=== PATIENT | female | born 1980 | race Caucasian/White ===

== ENCOUNTER 2019-03-06 14:18 | Outpatient (CLI) | payer BC ==
--- NOTE | 2019-03-06 15:04 | MMO ---
Bilateral MAMMO Bilat Screen [facility]. CLINICAL HISTORY: Patient is 38 years old and is seen for screening. The patient has no family history of breast cancer. The patient has a history of Skin cancer in December,. VIEWS: The views performed were: bilateral craniocaudal with tomosynthesis; bilateral mediolateral oblique with tomosynthesis; and bilateral exaggerated craniocaudal. MAMMOGRAM FINDINGS: The breasts are heterogeneously dense, which could obscure a lesion on mammography. Finding 1: There is an oval mass with obscured margins seen in the outer region of the right breast. Finding 2: There is an oval mass with obscured margins seen in the left breast at 12 o'clock. Finding 3: There are calcifications with segmental distribution seen in the sub-areolar region of the left breast. IMPRESSION: FINDING 1: MASS IN THE RIGHT BREAST REQUIRES ADDITIONAL EVALUATION. RECOMMEND DIAGNOSTIC MAMMOGRAM. ULTRASOUND MAY ALSO PROVE USEFUL AT RECALL. FINDING 2: MASS IN THE LEFT BREAST REQUIRES ADDITIONAL EVALUATION. RECOMMEND DIAGNOSTIC MAMMOGRAM. ULTRASOUND MAY ALSO PROVE USEFUL AT RECALL. FINDING 3: CALCIFICATIONS IN THE LEFT BREAST REQUIRE ADDITIONAL EVALUATION. RECOMMEND DIAGNOSTIC MAMMOGRAM. THE RESULTS OF THIS EXAM WERE SENT TO THE PATIENT. ACR BI-RADS Category 0 - Incomplete: Need additional imaging evaluation. [facility] will notify the patient of the need for additional imaging services. MAMMOGRAPHY NOTE: 1. A negative mammogram report should not delay a biopsy if a dominant of clinically suspicious mass is present. 2. Approximately 10% to 15% of breast cancers are not detected by mammography. 3. Adenosis and dense breasts may obscure an underlying neoplasm.
== END 2019-03-06 14:19 | disposition home or self-care (01) ==
LOC: BICMAMMO 14:18
PROVIDERS: ATTEND Family Medicine
DX: Z12.31 Encounter for screening mammogram for malignant neoplasm of breast (principal); Z85.828 Personal history of other malignant neoplasm of skin; N63.10 Unspecified lump in the right breast, unspecified quadrant; N63.20 Unspecified lump in the left breast, unspecified quadrant; R92.1 Mammographic calcification found on diagnostic imaging of breast
CPT/HCPCS: 77063; 77067

== ENCOUNTER 2019-03-16 08:40 | Outpatient (CLI) | payer BC ==
--- NOTE | 2019-03-16 09:43 | MMO ---
Bilateral MAMMO Bilat Diag [facility]. CLINICAL HISTORY: Patient is 38 years old and is seen for diagnostic exam. The patient has no family history of breast cancer. The patient has a history of Skin cancer in December,. VIEWS: The views performed were: bilateral craniocaudal with tomosynthesis; bilateral mediolateral oblique with tomosynthesis; bilateral mediolateral with tomosynthesis; left craniocaudal spot compression magnification; and left mediolateral spot compression magnification. FILMS COMPARED: The present examination has been compared to prior imaging studies performed at [facility] on 03/06/2019 and 03/16/2019. MAMMOGRAM FINDINGS: The breasts are heterogeneously dense, which could obscure a lesion on mammography. Lobulated masses are redemonstrated bilaterally on this examination, likely representing mildly complex cysts on ultrasound. Please see ultrasound report for details. Numerous scattered calcifications are noted on the left, probably benign as well. Recommend 6 month follow up diagnostic mammogram and focused breast ultrasound. IMPRESSION: FINDINGS IN BOTH BREASTS ARE PROBABLY BENIGN. FOLLOW-UP IN 6 MONTHS IS RECOMMENDED. 3BTHE RESULTS OF THIS EXAM WERE SENT TO THE PATIENT.0B ACR BI-RADS Category 3 - Probably benign finding - short interval follow-up suggested. [facility] will notify the patient of the need for additional imaging services. MAMMOGRAPHY NOTE: 1. A negative mammogram report should not delay a biopsy if a dominant of clinically suspicious mass is present. 2. Approximately 10% to 15% of breast cancers are not detected by mammography. 3. Adenosis and dense breasts may obscure an underlying neoplasm.
--- NOTE | 2019-03-16 09:52 | ULT ---
BILATERAL BREAST ULTRASOUND: DATE: 03/16/2019. COMPARISON: None. HISTORY: A 38-year-old female with bilateral breast masses on mammography. FINDINGS: Focused ultrasound of the right breast in the upper quadrant demonstrates a loculated hypoechoic lesi on approximately 2 cm from the nipple at the 10:30 position measuring 7 x 6 x 9 mm with increased thr ough transmission and slightly lobulated borders with internal linear structures suggesting a complex cyst. A probable cluster of complex cysts is also noted at the 11 o'clock position of the right thanh ast approximately 2 cm from the nipple measuring in total 1.2 x 0.3 x 0.7 cm. There is a mildly lobulated and slightly complex/septated cyst at the 12:30 position of the left luc[address] st measuring approximately 1.4 cm. IMPRESSION: BIRADS 3: probably benign finding. Recommend followup bilateral diagnostic mammogram and focused thanh ast ultrasound in 6 months. POS: OFF
== END 2019-03-16 08:41 | disposition home or self-care (01) ==
LOC: BICMAMMO 08:40
PROVIDERS: ATTEND Family Medicine
DX: N63.0 Unspecified lump in unspecified breast (principal); Z85.828 Personal history of other malignant neoplasm of skin
CPT/HCPCS: 77066; G0279

== ENCOUNTER 2019-07-21 12:29 | Outpatient (CLI) | payer BC ==
--- NOTE | 2019-07-21 13:56 | RAD ---
LEFT FOOT THREE VIEWS: HISTORY: A 39-year-old female with left foot pain. Injury to the first tarsal. FINDINGS: No acute fracture or dislocation is identified. POS: OFF
== END 2019-07-21 12:30 | disposition home or self-care (01) ==
LOC: BICRAD 12:29
PROVIDERS: ATTEND Family Medicine
DX: M79.672 Pain in left foot (principal)

== ENCOUNTER 2019-09-21 10:07 | Outpatient (CLI) | payer BC ==
--- NOTE | 2019-09-21 11:40 | MMO ---
Bilateral MAMMO Bilat Diag [facility]. CLINICAL HISTORY: Patient is 39 years old and is seen for diagnostic exam. The patient has no family history of breast cancer. The patient has a history of Skin cancer in December,. VIEWS: The views performed were: bilateral craniocaudal with tomosynthesis; bilateral mediolateral oblique with tomosynthesis; and bilateral mediolateral with tomosynthesis. FILMS COMPARED: The present examination has been compared to prior imaging studies performed at [facility] on 03/16/2019 and 09/21/2019. This study has been interpreted with the assistance of computer-aided detection. MAMMOGRAM FINDINGS: The breasts are heterogeneously dense, which could obscure a lesion on mammography. Finding 1: There is a stable oval mass seen in the outer region of the right breast. The mass was shown to be a cyst on ultrasound. Finding 2: There is a stable oval mass seen in the upper region of the left breast. The mass was shown to be a cyst on ultrasound. Finding 3: There are stable calcifications seen in the anterior central region of the left breast. IMPRESSION: FINDING 1: STABLE MASS IN THE RIGHT BREAST IS BENIGN. FINDING 2: STABLE MASS IN THE LEFT BREAST IS BENIGN. FINDING 3: STABLE CALCIFICATIONS IN THE LEFT BREAST ARE PROBABLY BENIGN. FOLLOW-UP IN 6 MONTHS IS RECOMMENDED. THE RESULTS OF THIS EXAM WERE SENT TO THE PATIENT. ACR BI-RADS Category 3 - Probably benign finding - short interval follow-up suggested. [facility] will notify the patient of the need for additional imaging services. MAMMOGRAPHY NOTE: 1. A negative mammogram report should not delay a biopsy if a dominant of clinically suspicious mass is present. 2. Approximately 10% to 15% of breast cancers are not detected by mammography. 3. Adenosis and dense breasts may obscure an underlying neoplasm. Reported by: LINDSEY GARCIA MD Electonically Signed: [id number]
--- NOTE | 2019-09-21 11:56 | ULT ---
LIMITED LEFT BREAST ULTRASOUND: DATE: 09/21/2019. PROVIDED CLINICAL HISTORY: Followup. FINDINGS: Comparison 03/16/2019. Simple cyst at the 12:30 position of the left breast is stable. No concerning sonographic findings. IMPRESSION: BIRADS category 3 - probably benign findings. Six-month followup bilateral diagnostic mammogram is r ecommended for calcifications within the left breast. Sonographic findings are stable and benign. POS: OFF
--- NOTE | 2019-09-21 11:58 | ULT ---
LIMITED RIGHT BREAST ULTRASOUND: DATE: 09/21/2019. PROVIDED CLINICAL HISTORY: Followup. FINDINGS: Comparison 03/16/2019. Cysts at the 10:30 and 11:00 position of the right breast are redemonstrated. No concerning interval change. No additional findings. IMPRESSION: BIRADS category 2 - benign findings involving the right breast. The patient will be due in 6 months for annual bilateral mammography at which time a diagnostic examination should be performed for evalu ation of left breast calcifications. POS: OFF
== END 2019-09-21 10:08 | disposition home or self-care (01) ==
LOC: BICMAMMO 10:07
PROVIDERS: ATTEND Family Medicine
DX: N63.11 Unspecified lump in the right breast, upper outer quadrant (principal); N63.13 Unspecified lump in the right breast, lower outer quadrant; N63.21 Unspecified lump in the left breast, upper outer quadrant; N63.23 Unspecified lump in the left breast, lower outer quadrant; R92.1 Mammographic calcification found on diagnostic imaging of breast
CPT/HCPCS: 77066; G0279

== ENCOUNTER 2020-05-05 10:07 | Outpatient (CLI) | payer BC ==
--- NOTE | 2020-05-05 10:59 | MMO ---
Left Breast MAMMO Unilat Diag [facility]. CLINICAL HISTORY: Patient is 39 years old and is seen for diagnostic exam. The patient has no family history of breast cancer. The patient has a history of Skin cancer in December,. VIEWS: The views performed were: left craniocaudal spot compression magnification; left mediolateral oblique spot compression magnification; and left mediolateral with tomosynthesis. FILMS COMPARED: The present examination has been compared to prior imaging studies performed at [facility] on 09/21/2019 and 05/05/2020. This study has been interpreted with the assistance of computer-aided detection. MAMMOGRAM FINDINGS: The breast is heterogeneously dense, which could obscure a lesion on mammography. There are stable calcifications seen in the anterior central region of the left breast. IMPRESSION: STABLE CALCIFICATIONS IN THE LEFT BREAST ARE PROBABLY BENIGN. FOLLOW-UP IN 6 MONTHS IS RECOMMENDED. THE RESULTS OF THIS EXAM WERE SENT TO THE PATIENT. ACR BI-RADS Category 3 - Probably benign finding - short interval follow-up suggested. [facility] will notify the patient of the need for additional imaging services. MAMMOGRAPHY NOTE: 1. A negative mammogram report should not delay a biopsy if a dominant of clinically suspicious mass is present. 2. Approximately 10% to 15% of breast cancers are not detected by mammography. 3. Adenosis and dense breasts may obscure an underlying neoplasm. Reported by: ANABELA LIRIANO MD Electonically Signed: [id number]
== END 2020-05-05 10:08 | disposition home or self-care (01) ==
LOC: BICMAMMO 10:07
PROVIDERS: ATTEND Family Medicine
DX: N63.20 Unspecified lump in the left breast, unspecified quadrant (principal); R92.1 Mammographic calcification found on diagnostic imaging of breast
CPT/HCPCS: G0279

== ENCOUNTER 2023-06-10 07:58 | Outpatient (CLI) | payer BC | END 2023-06-10 07:59 | disposition home or self-care (01) | LOC: BICMAMMO 07:58 | PROVIDERS: ATTEND Family Medicine | DX: R92.8 Other abnormal and inconclusive findings on diagnostic imaging of breast (principal); N60.11 Diffuse cystic mastopathy of right breast | CPT/HCPCS: G0279 ==